=== PATIENT | male | born 1960 | race Hispanic/Latino ===

== ENCOUNTER 2019-06-14 10:36 | Inpatient (IN) | payer OTHER ==
[~2019-06-14] VITALS: Ht 188 cm; Wt 84.9 kg
[2019-06-14] MEDS ORDERED: KETOROLAC TROMETHAMINE 30 MG/ML VIAL IV STA (10:52)
[2019-06-14] MEDS ORDERED: ENALAPRILAT IV INJ 1.25 MG/ML VIAL IV STA (10:55)
[2019-06-14] MEDS ORDERED: ONDANSETRON HCL INJ 2MG/ML 2ML 2 MG/ML VIAL IV PRN (11:00)
[2019-06-14] MEDS ORDERED: SODIUM CHLORIDE FLUSH 10 ML SYR INJ PRN (11:00)
[2019-06-14] MEDS ORDERED: SODIUM CHLORIDE 0.9% 1000ML 1,000 ML IV SCH (11:00)
[2019-06-14 11:30] LABS: BASOPHILS # (AUTO) 0.1 (0.0-0.1); BASOPHILS % 0.5 % (0.0-1.0); EOSINOPHILS # (AUTO) 0.1 (0.0-0.4); EOSINOPHILS % 0.6 % (0.0-6.0); HEMATOCRIT 45.3 % (38.2-49.6); HEMOGLOBIN 15.6 g/dL (14.0-18.0); LYMPHOCYTES # (AUTO) 1.5 (1.0-3.2); LYMPHOCYTES % 10.1 % (18.0-39.1); MEAN CORPUSCULAR HEMOGLOBIN 34.2 pg (28-32); MEAN CORPUSCULAR HGB CONC 34.4 g/dL (31-35); MEAN CORPUSCULAR VOLUME 99.3 fL (81-99); MONOCYTES # (AUTO) 1.1 (0.2-0.8); MONOCYTES % 7.3 % (4.4-11.3); NEUTROPHILS # (AUTO) 12.1 (2.1-6.9); NEUTROPHILS % 81.1 % (38.7-80.0); PLATELET COUNT 233 x10e3/uL (140-360); RED BLOOD COUNT 4.56 x10e6/uL (4.3-5.7); RED CELL DISTRIBUTION WIDTH 13.2 % (11.7-14.4)
[2019-06-14 11:51] LABS: ALANINE AMINOTRANSFERASE 21 IU/L (0-55); ALBUMIN 3.4 g/dL (3.5-5.0); ALBUMIN/GLOBULIN RATIO 0.8 (0.8-2.0); ALKALINE PHOSPHATASE 104 IU/L (40-150); ANION GAP 12.6 mmol/L (8-16); BLOOD UREA NITROGEN 15 mg/dL (7-26); BUN/CREATININE RATIO 13 (6-25); CALCIUM 9.7 mg/dL (8.4-10.2); CARBON DIOXIDE 24 mmol/L (22-29); CHLORIDE 103 mmol/L (98-107); CREATININE, SERUM 1.13 mg/dL (0.72-1.25); EST GLOMERULAR FILTRATION RATE > 60 ML/MIN (60-); GLUCOSE 118 mg/dL (74-118); POTASSIUM 3.6 mmol/L (3.5-5.1); SODIUM 136 mmol/L (136-145)
[2019-06-14] MEDS: PIPER-TAZ 3.375 GM 50 ML IV SCH ×2 (13:08→22:00)
[2019-06-14] MEDS: VANCOMYCIN 1GM/NS 250 ML 250 ML IV SCH ×2 (13:08→22:00)
[2019-06-14] MEDS ORDERED: FAMOTIDINE 20 MG/2 ML VIAL IV SCH (17:00)
[2019-06-14] MEDS: FAMOTIDINE 20 MG TAB PO SCH (18:33)
[2019-06-14] MEDS: TRAMADOL HCL 50 MG TAB PO PRN (22:22)
--- NOTE | 2019-06-14 23:41 | NUR ---
Received patient from ER via stretcher. Patient awake and resting in bed, no s/s of distress or c/o pain at this time. All safety measures in place. Will continue to monitor.
[2019-06-15] VITALS (11 sets, daily range): BP systolic 143–175; BP diastolic 78–97
--- NOTE | 2019-06-15 00:01 | NUR ---
Wound culture of left lower extremity sent to lab.
[2019-06-15] MEDS: ACETAMINOPHEN 325 MG TAB PO PRN (00:08)
--- NOTE | 2019-06-15 02:52 | NUR ---
Moderate serous drainage to left lower extremity noted. Applied gauze and Kerlix.
--- NOTE | 2019-06-15 02:59 | NUR ---
Labs drawn as ordered and sent to lab.
[2019-06-15 03:27] LABS: BASOPHILS % 0.3 % (0.0-1.0); EOSINOPHILS # (AUTO) 0.2 (0.0-0.4); EOSINOPHILS % 1.3 % (0.0-6.0); HEMOGLOBIN 12.6 g/dL (14.0-18.0); LYMPHOCYTES # (AUTO) 1.8 (1.0-3.2); LYMPHOCYTES % 13.3 % (18.0-39.1); MEAN CORPUSCULAR HEMOGLOBIN 33.6 pg (28-32); MEAN CORPUSCULAR HGB CONC 33.2 g/dL (31-35); MEAN CORPUSCULAR VOLUME 101.3 fL (81-99); MONOCYTES # (AUTO) 1.1 (0.2-0.8); MONOCYTES % 8.4 % (4.4-11.3); NEUTROPHILS # (AUTO) 10.3 (2.1-6.9); NEUTROPHILS % 76.3 % (38.7-80.0); PLATELET COUNT 200 x10e3/uL (140-360); RED BLOOD COUNT 3.75 x10e6/uL (4.3-5.7); RED CELL DISTRIBUTION WIDTH 13.3 % (11.7-14.4)
[2019-06-15 03:51] LABS: ALANINE AMINOTRANSFERASE 35 IU/L (0-55); ALBUMIN 2.6 g/dL (3.5-5.0); ALBUMIN/GLOBULIN RATIO 0.8 (0.8-2.0); ALKALINE PHOSPHATASE 136 IU/L (40-150); ANION GAP 13.5 mmol/L (8-16); BLOOD UREA NITROGEN 14 mg/dL (7-26); BUN/CREATININE RATIO 14 (6-25); CALCIUM 8.6 mg/dL (8.4-10.2); CARBON DIOXIDE 21 mmol/L (22-29); CHLORIDE 109 mmol/L (98-107); CREATININE, SERUM 1.03 mg/dL (0.72-1.25); EST GLOMERULAR FILTRATION RATE > 60 ML/MIN (60-); GLUCOSE 103 mg/dL (74-118); POTASSIUM 3.5 mmol/L (3.5-5.1); SODIUM 140 mmol/L (136-145)
[2019-06-15] MEDS ORDERED: SODIUM CHLORIDE 0.9% 250ML 250 ML ONE (04:52)
[2019-06-15] MEDS: TRAMADOL HCL 50 MG TAB PO PRN ×4 (05:09→23:15)
[2019-06-15] MEDS: PIPER-TAZ 3.375 GM 50 ML IV SCH ×3 (05:12→22:15)
--- NOTE | 2019-06-15 05:35 | NUR ---
Daughter at bedside reporting that patient does not take any medications at home.
--- NOTE | 2019-06-15 06:53 | NUR ---
Report given to oncoming nurse. Patient resting in bed, no s/s of distress or c/o pain at this time. All safety measures in place. Family at bedside.
[2019-06-15] MEDS: VANCOMYCIN 1GM/NS 250 ML 250 ML IV SCH ×2 (08:32→20:42)
[2019-06-15] MEDS: HYDRALAZINE HCL 20 MG/ML VIAL IV PRN (08:32)
[2019-06-15] MEDS: FAMOTIDINE 20 MG TAB PO SCH ×2 (08:32→17:00)
--- NOTE | 2019-06-15 10:40 | NUR ---
Dressing change performed at this time, yellow drainage observed. Open skin in 3 sites, skin wrinkling around open areas. Redness, swelling, and tightness observed to lower ext. C/o pain 6/10. 4x4 sterile gauze and kerlix dressing.
[2019-06-15] MEDS ORDERED: FUROSEMIDE INJ 10 MG/ML 4 ML VIAL IV ONE (11:00)
[2019-06-15] MEDS ORDERED: POTASSIUM CHLORIDE 20 MEQ TAB CR PO ONE (11:00)
[2019-06-15] MEDS: AMLODIPINE BESYLATE 5 MG TAB PO SCH (11:30)
--- NOTE | 2019-06-15 12:31 | Diagnostic Imaging Report ---
Exam: Limited ultrasound left lower extremity. Clinical History: Left lower extremity cellulitis, query abscess. Technique: Limited sonographic evaluation of the left lower extremity soft tissues to evaluate for abscess was performed. Findings/Impression: There is diffuse subcutaneous edema. There is an ill-defined isoechoic to hypoechoic subcutaneous fluid collection in the left lower leg with surrounding hyperemia, suggestive of phlegmon/developing abscess. Signed by: Dr. Brittnee Maya MD on 06/15/2019 12:27 PM
--- NOTE | 2019-06-15 12:47 | NUR ---
GAVE PACKET OF INFORMATION WITH COMMUNITY [employer]OURCES FOR ASSISTANCE WITH LOW TO NO INCOME TO PATIENT. RESOURCES THAT PATIENT MAY BE ABLE TO FOLLOW UP UPON DISCHARGE. PT EDUCATED ON EACH RESOURCE AND UNDERSTANDING HOW TO FOLLOW UP TO SEE IF QUALIFIED FOR EACH RESOURCE.
--- NOTE | 2019-06-15 13:15 | NUR ---
Consults called at this time for Dr. Walters and Dr. White per order
--- NOTE | 2019-06-15 13:17 | NUR ---
Received call back from Dr. Broderick regarding consult. Will be in to see pt tomorrow
[2019-06-15] MEDS ORDERED: SODIUM CHLORIDE 0.9% 50ML 50 ML ONE ×2 (18:16)
[2019-06-15] MEDS ORDERED: IOPAMIDOL 370 MG/ML 200 ML INFUS..BTL INJ ONE (18:17)
--- NOTE | 2019-06-15 19:04 | NUR ---
Received report from day nurse. Patient currently off unit for CT. Will continue to monitor upon return.
--- NOTE | 2019-06-15 19:50 | Diagnostic Imaging Report ---
EXAM: CT left lower extremity WITH contrast INDICATION: ^Abscess ^[id number] ^190 COMPARISON: Same day ultrasound. TECHNIQUE: Left lower extremity was scanned utilizing a multidetector helical scanner following administration of IV contrast (100 Isovue-370). Coronal and sagittal reformations were obtained. Routine protocol was performed. COMPLICATIONS: None RADIATION DOSE: Total DLP: 263.21 mGy*cm Estimated effective dose: (DLP x 0.015 x size factor) mSv CTDIvol has been reviewed. It is below the limits set by the Radiation Protocol Committee (RPC). FINDINGS: No acute osseous fracture or dislocation. Incidentally seen os trigonum and tiny calcaneal enthesophytes. No suprapatellar joint effusion. Subcutaneous edema of the visualized left lower extremity, mostly on the lateral side. Approximately 3.7 x 2 cm collection (series 600, image 57), seen posterior and inseparable from ankle joint. And less likely to represent abscess. No surrounding inflammation. There is also lateral left leg skin thickening. Vessels are patent. IMPRESSION: 1. Subcutaneous edema and skin thickening of the lateral left leg, could represent cellulitis. 2. Approximately 3.7 cm posterolateral collection, inseparable from ankle joint, likely joint effusion and less likely to represent an abscess without surrounding inflammation. Signed by: Dr. Joe Kirby MD on 06/15/2019 7:47 PM
--- NOTE | 2019-06-15 21:52 | Consultation ---
DATE OF CONSULTATION: 06/15/2019 This is patient of Dr. Calhoun. REASON FOR CONSULTATION: Infectious Disease consulted for cellulitis of the left lower extremity. HISTORY OF PRESENT ILLNESS: I would like to thank you for this kind consult. This is a 58-year-old Latin-Polish gentleman, who is presented today at [facility] in [place] accompanied with his complaining of left lower extremity cellulitis, erythema, redness that has started about a week ago when he started trying to pop a pimple on the lateral side of his left leg and almost mid tibial area on the lateral side, apparently progressive and started getting worse, started having chills and shakes and severe swelling and edema and worsening of the pain. The patient came to the hospital seeking medical attention. PAST MEDICAL HISTORY: Including hypertension. SOCIAL HISTORY: Lives with the family. He smokes about 6 cigarettes a day and drinks a 6 pack of beer and denied any illicit drugs. ALLERGIES: NO KNOWN ALLERGIES. MEDICATIONS: Medication list reviewed. As far as Infectious Disease point of view, the patient is on vancomycin IV and Zosyn. LABORATORY DATA: White blood cells of 13.5, platelet 200, hemoglobin 12.6. Sodium 140, potassium 3.5, creatinine 1.03. Microbiology, blood cultures negative 24 hours. Wound cultures pending. RADIOLOGY STUDIES: Ultrasound of the left lower extremity showed diffuse subcutaneous edema. There is an ill-defined isoechoic to hypoechoic subcutaneous fluid collection in the left lower leg with surrounding hyperemia suggestive of phlegmon and developing abscess. REVIEW OF SYSTEMS: Complained of a pain on the left flank and fever and chills on admission. No nausea or vomiting. PHYSICAL EXAMINATION: GENERAL: Alert and oriented, responds appropriately. VITAL SIGNS: Blood pressure 143/78, temperature 97.2, pulse 88, respiration 18. CV: S1 and S2. CHEST: Equal expansion. Clear to auscultation. No acute distress. ABDOMEN: Soft and nontender. No distention. HEENT: Moist, no pallor. No JVD. EXTREMITIES: Left lower extremity erythema with the wounds that seem to have drained some in the past with scabbed over with some skin elevation and discoloration on the lateral side of the left leg. The leg is swollen with redness from mid metatarsal area to half the thigh. ASSESSMENT AND PLAN: 1. Severe cellulitis of the left lower extremities. 2. Wounds on left lower extremities. 3. Pain. 4. Hypertension. 5. Concerned abscess. 6. Tobacco and alcohol abuse. Currently on vancomycin IV and Zosyn, I agreed with antibiotics. General Surgery is consulted. We will follow up with the cultures. Further management of this patient is based on daily finding on laboratory and physical examination. We will order an MRI of the left lower extremity. This case was discussed with Dr. White in details. I want to thank you for this kind consult. Dictated by Demetri Lepe PA-C (Al) Anand White MD /MODL /[id number]
[2019-06-16] VITALS (8 sets, daily range): BP systolic 134–168; BP diastolic 84–100
--- NOTE | 2019-06-16 03:20 | NUR ---
0300 labs drawn and sent to lab as ordered.
[2019-06-16 03:41] LABS: BASOPHILS # (AUTO) 0.1 (0.0-0.1); BASOPHILS % 0.4 % (0.0-1.0); EOSINOPHILS # (AUTO) 0.2 (0.0-0.4); EOSINOPHILS % 1.9 % (0.0-6.0); HEMATOCRIT 38.6 % (38.2-49.6); LYMPHOCYTES # (AUTO) 1.6 (1.0-3.2); LYMPHOCYTES % 12.9 % (18.0-39.1); MEAN CORPUSCULAR HEMOGLOBIN 33.7 pg (28-32); MEAN CORPUSCULAR HGB CONC 33.7 g/dL (31-35); MONOCYTES # (AUTO) 0.9 (0.2-0.8); MONOCYTES % 7.5 % (4.4-11.3); NEUTROPHILS # (AUTO) 9.5 (2.1-6.9); NEUTROPHILS % 76.9 % (38.7-80.0); PLATELET COUNT 225 x10e3/uL (140-360); RED BLOOD COUNT 3.86 x10e6/uL (4.3-5.7); RED CELL DISTRIBUTION WIDTH 13.2 % (11.7-14.4)
[2019-06-16 03:54] LABS: ALANINE AMINOTRANSFERASE 53 IU/L (0-55); ALBUMIN 2.6 g/dL (3.5-5.0); ALKALINE PHOSPHATASE 254 IU/L (40-150); ANION GAP 13.3 mmol/L (8-16); BILIRUBIN,DIRECT 0.9 mg/dL (0.0-0.5); BLOOD UREA NITROGEN 13 mg/dL (7-26); BUN/CREATININE RATIO 12 (6-25); CARBON DIOXIDE 25 mmol/L (22-29); CHLORIDE 103 mmol/L (98-107); EST GLOMERULAR FILTRATION RATE > 60 ML/MIN (60-); GLUCOSE 105 mg/dL (74-118); POTASSIUM 3.3 mmol/L (3.5-5.1); SODIUM 138 mmol/L (136-145)
[2019-06-16] MEDS: TRAMADOL HCL 50 MG TAB PO PRN ×3 (05:11→18:29)
[2019-06-16] MEDS: PIPER-TAZ 3.375 GM 50 ML IV SCH ×3 (05:11→22:33)
--- NOTE | 2019-06-16 05:11 | NUR ---
Administered pain medication and changed left lower extremity dressing. Applied sterile 4x4 gauze and Kerlix. Patient running 93% on room air and 96% on 2L O2 NC. Respirations even and unlabored, vital signs stable, no s/s of distress noted. Patient prefers to lie flat in bed with feet elevated. All safety measures in place. Family at bedside. Will continue to monitor.
--- NOTE | 2019-06-16 06:44 | NUR ---
Dr. Broderick rounded on patient and informed family that no surgery is needed at this time.
--- NOTE | 2019-06-16 07:00 | NUR ---
BEDSIDE SHIFT REPORT RECEIVED FROM THE TELEPHONE SALES REPRESENTATIVE RN. EDUCATED PT ABOUT FALL PRECAUTIONS. CALL LIGHT WITH IN EASY REACH. INSTRUCTED PT TO USE CALL LIGHT FOR ALL THE NEEDS. PT VERBALIZED UNDERSTANDING. BED IS LOW AND LOCKED. SIDE RAILS X2. BED ALARM IS ON. AT BEDSIDE. PT DENIES NEEDS AT THIS TIME.
--- NOTE | 2019-06-16 07:15 | NUR ---
Bedside report given to oncoming nurse. Patient resting in bed, no s/s of distress at this time. All safety measures in place. Family at bedside.
[2019-06-16] MEDS: FAMOTIDINE 20 MG TAB PO SCH ×2 (08:30→16:23)
[2019-06-16] MEDS: VANCOMYCIN 1GM/NS 250 ML 250 ML IV SCH ×2 (09:11→21:15)
[2019-06-16] MEDS: AMLODIPINE BESYLATE 5 MG TAB PO SCH (09:11)
[2019-06-16] MEDS ORDERED: POTASSIUM CHLORIDE 20 MEQ TAB CR PO ONE (10:00)
--- NOTE | 2019-06-16 11:15 | Consultation ---
DATE OF CONSULTATION: 06/16/2019 HISTORY OF PRESENT ILLNESS: The patient is a 58-year-old male who presents with complaints of pain and swelling in his left leg. He says it started as a small pimple about a little more than a week ago, but worsened. He has had noted some small amount of drainage from the area. He was sent to the emergency room where he was admitted to the hospital. A CT of the leg was done, which revealed some thickening and edema, but no definite abscess. The patient says since he has been in the hospital, his leg is improved, the redness is less, his pain is less. PAST MEDICAL HISTORY: Significant for hypertension. ALLERGIES: HE HAS NO KNOWN ALLERGIES. MEDICATIONS: Listed in the chart. PAST SURGICAL HISTORY: No previous surgeries. FAMILY HISTORY: Noncontributory. SOCIAL HISTORY: The patient smokes about a third of pack cigarettes per day. Drinks 1-2 drinks per day. REVIEW OF SYSTEMS: Essentially negative. He has not had any fever. PHYSICAL EXAMINATION: GENERAL: The patient is awake and alert, in no distress. VITAL SIGNS: Normal. HEENT: Unremarkable. Sclerae are nonicteric. NECK: No masses. LUNGS: Equal breath sounds are clear bilaterally. CARDIAC: Regular rate and rhythm with no murmur. ABDOMEN: Soft. There is no tenderness. No mass. No organomegaly. EXTREMITIES: In the left leg, there is erythema in the anterolateral aspect of the left leg below the knee; and laterally, there is some discoloration of the skin. There was no fluctuance. There was no drainage noted. There is no crepitus. There is erythema of the surrounding area. Peripheral pulses are palpable. NEUROLOGIC: Grossly intact. ASSESSMENT: A 58-year-old male with primarily cellulitis of the left leg. No definite abscess at this time. At this point, recommend continue the patient on IV antibiotics with leg elevation. Hope this likely will resolve without requiring surgical intervention, but is possible could develop into an abscess. Thank you for asking me to see Mr. Alejandra. MD EVELIA Lao/ELIZABETH /[id number]
[2019-06-16] MEDS: HYDRALAZINE HCL 20 MG/ML VIAL IV PRN ×2 (12:20→21:15)
--- NOTE | 2019-06-16 14:10 | NUR ---
Visit made by the Spiritual Care Department Pastoral Visitor, Mounika Perez. PV provided pastoral presence, hospitality, prayer, and supportive listening. Pastoral Visitor informed pt/family of the scope of Activities Volunteer Services and availability. JAMESON FIGUEROA Trench Trimmer [employer] Spiritual Care Department O: [phone] Pager: [phone] ([phone] number calling from)
--- NOTE | 2019-06-16 19:00 | NUR ---
BEDSIDE SHIFT REPORT GIVEN TO THE INSULATION FOREMAN RN. PT DENIED FURTHER NEEDS
--- NOTE | 2019-06-16 19:26 | NUR ---
Received bedside report from day nurse. Patient resting in bed, no s/s of distress at this time. All safety measures in place. Family at bedside. Will continue to monitor.
[2019-06-17] VITALS (8 sets, daily range): BP systolic 149–183; BP diastolic 81–93
[2019-06-17] MEDS: TRAMADOL HCL 50 MG TAB PO PRN ×3 (03:15→16:17)
--- NOTE | 2019-06-17 03:26 | NUR ---
Labs drawn as ordered and sent to lab.
[2019-06-17 03:38] LABS: BASOPHILS # (AUTO) 0.1 (0.0-0.1); BASOPHILS % 0.5 % (0.0-1.0); EOSINOPHILS # (AUTO) 0.3 (0.0-0.4); EOSINOPHILS % 2.3 % (0.0-6.0); HEMATOCRIT 39.1 % (38.2-49.6); HEMOGLOBIN 13.2 g/dL (14.0-18.0); LYMPHOCYTES # (AUTO) 1.3 (1.0-3.2); LYMPHOCYTES % 11.6 % (18.0-39.1); MEAN CORPUSCULAR HGB CONC 33.8 g/dL (31-35); MEAN CORPUSCULAR VOLUME 97.8 fL (81-99); NEUTROPHILS # (AUTO) 8.3 (2.1-6.9); NEUTROPHILS % 76.2 % (38.7-80.0); PLATELET COUNT 252 x10e3/uL (140-360)
[2019-06-17 03:59] LABS: ALANINE AMINOTRANSFERASE 61 IU/L (0-55); ALBUMIN 2.6 g/dL (3.5-5.0); ALKALINE PHOSPHATASE 293 IU/L (40-150); ANION GAP 15.4 mmol/L (8-16); BILIRUBIN,DIRECT 0.7 mg/dL (0.0-0.5); BLOOD UREA NITROGEN 11 mg/dL (7-26); BUN/CREATININE RATIO 11 (6-25); CALCIUM 9.2 mg/dL (8.4-10.2); CARBON DIOXIDE 21 mmol/L (22-29); CHLORIDE 101 mmol/L (98-107); CREATININE, SERUM 0.99 mg/dL (0.72-1.25); EST GLOMERULAR FILTRATION RATE > 60 ML/MIN (60-); GLUCOSE 108 mg/dL (74-118); POTASSIUM 3.4 mmol/L (3.5-5.1); SODIUM 134 mmol/L (136-145)
[2019-06-17] MEDS: PIPER-TAZ 3.375 GM 50 ML IV SCH ×3 (05:15→22:13)
--- NOTE | 2019-06-17 07:00 | NUR ---
BEDSIDE SHIFT REPORT RECEIVED FROM THE LEAD PORTFOLIO MANAGER RN. EDUCATED PT ABOUT FALL PRECAUTIONS. CALL LIGHT WITH IN EASY REACH. INSTRUCTED PT TO USE CALL LIGHT FOR ALL THE NEEDS. PT VERBALIZED UNDERSTANDING. BED IS LOW AND LOCKED. SIDE RAILS X2. AT BEDSIDE. PT DENIES NEEDS AT THIS TIME.
--- NOTE | 2019-06-17 07:10 | NUR ---
Bedside report given to oncoming nurse. Patient resting in bed, no s/s of distress or c/o pain at this time. All safety measures in place. Family at bedside.
[2019-06-17] MEDS ORDERED: GADOBENATE DIMEGLUMINE 1 ML IV ONE (07:50)
[2019-06-17] MEDS: FAMOTIDINE 20 MG TAB PO SCH ×2 (08:30→16:05)
[2019-06-17] MEDS: VANCOMYCIN 1GM/NS 250 ML 250 ML IV SCH (08:40)
[2019-06-17] MEDS ORDERED: AMLODIPINE BESYLATE 10 MG TAB PO SCH (09:00)
[2019-06-17] MEDS ORDERED: POTASSIUM CHLORIDE 20 MEQ TAB CR PO ONE (09:00)
[2019-06-17] MEDS: MORPHINE SULFATE 2 MG/ML SYR 1ML IV PRN (12:49)
--- NOTE | 2019-06-17 14:13 | NUR ---
58 YO MALE HX OF CELLULITIS LLE PATIENT REPORT PRESENCE OF ONE ONE SMALL PUSS FILLED BUMP THAT HE SQUEEZED AND THEN X 2 DAYS LEG BECAME INFLAMED AND SMALL DARK AREA WHERE BUMP ONCE WAS ZAK 17 ON CONSERVATIVE PUP AND ALTERNATING PRESSURE SURFACE CULTURE PENDING FOR LLE WOUND PLAN FOR MRI CT AND ULTRASOUND LLE COMPLETE SKIN ASSESSMENT COMPLETE PATIENT PRESENTS WITH LLE SWOLLEN AND OPENED BLISTERED AREA MEASURING 11CM X 3CM X.1CM WITH A DARK SCABBED CIRCULAR AREA MEASURING 1CM X1CM RECOMMENDATIONS: NURSING TO CLEAN LEFT LOWER LEG WOUND DAILY WITH NS APPLY BACITRACIN OINTMENT TO WOUND AND COVER WITH ALLEVYN FOAM DRESSING Addendum: 06/17/19 at 1423 by Kirt Garcia RN Amended: Links added.
--- NOTE | 2019-06-17 14:15 | NUR ---
PT OFF UNIT FOR MRI.
--- NOTE | 2019-06-17 15:05 | NUR ---
PT BACK TO UNIT AFTER PROCEDURE. DENIES NEEDS AT THIS TIME.
[2019-06-17] MEDS: BACITRACIN ZINC 15 GM OINT TOP SCH (16:00)
[2019-06-17] MEDS: HYDRALAZINE HCL 20 MG/ML VIAL IV PRN (16:59)
--- NOTE | 2019-06-17 19:00 | NUR ---
BEDSIDE SHIFT REPORT GIVEN TO THE DIVISION CONTROLLER RN. PT DENIED FURTHER NEEDS. FAMILY AT BEDSIDE.
[2019-06-17] MEDS: VANCOMYCIN HCL 1.25 GM in SODIUM CHLORIDE 0.9% 250ML 250 ML IV SCH (20:38)
[2019-06-17] MEDS ORDERED: VANCOMYCIN 1GM/NS 250 ML 250 ML IV SCH (21:00)
[2019-06-17] MEDS ORDERED: ONDANSETRON HCL 4 MG ORAL DISINTEGRATING TAB PO PRN (21:45)
[2019-06-18] VITALS (7 sets, daily range): BP systolic 138–167; BP diastolic 72–86
[2019-06-18] MEDS: TRAMADOL HCL 50 MG TAB PO PRN (02:57)
[2019-06-18 03:08] LABS: BASOPHILS # (AUTO) 0.1 (0.0-0.1); BASOPHILS % 0.5 % (0.0-1.0); EOSINOPHILS # (AUTO) 0.2 (0.0-0.4); EOSINOPHILS % 1.9 % (0.0-6.0); HEMATOCRIT 38.2 % (38.2-49.6); HEMOGLOBIN 12.9 g/dL (14.0-18.0); LYMPHOCYTES # (AUTO) 1.4 (1.0-3.2); LYMPHOCYTES % 13.8 % (18.0-39.1); MEAN CORPUSCULAR HEMOGLOBIN 33.2 pg (28-32); MEAN CORPUSCULAR HGB CONC 33.8 g/dL (31-35); MEAN CORPUSCULAR VOLUME 98.2 fL (81-99); MONOCYTES # (AUTO) 1.1 (0.2-0.8); MONOCYTES % 10.4 % (4.4-11.3); NEUTROPHILS # (AUTO) 7.4 (2.1-6.9); NEUTROPHILS % 73.1 % (38.7-80.0); PLATELET COUNT 261 x10e3/uL (140-360); RED BLOOD COUNT 3.89 x10e6/uL (4.3-5.7); RED CELL DISTRIBUTION WIDTH 13.1 % (11.7-14.4)
[2019-06-18 03:23] LABS: ANION GAP 15.6 mmol/L (8-16); BLOOD UREA NITROGEN 10 mg/dL (7-26); BUN/CREATININE RATIO 10 (6-25); CALCIUM 9.1 mg/dL (8.4-10.2); CARBON DIOXIDE 21 mmol/L (22-29); CHLORIDE 102 mmol/L (98-107); CREATININE, SERUM 0.99 mg/dL (0.72-1.25); EST GLOMERULAR FILTRATION RATE > 60 ML/MIN (60-); GLUCOSE 90 mg/dL (74-118); MAGNESIUM 2.2 MG/DL (1.3-2.1); POTASSIUM 3.6 mmol/L (3.5-5.1); SODIUM 135 mmol/L (136-145)
[2019-06-18] MEDS ORDERED: BACITRACIN15 GM TOP (05:31)
[2019-06-18] MEDS ORDERED: NIFEDIPINE ER30 M1 PO (05:31)
[2019-06-18] MEDS ORDERED: TYLENOL WITH C1 EACH PO (05:31)
[2019-06-18] MEDS: PIPER-TAZ 3.375 GM 50 ML IV SCH ×3 (05:37→22:38)
--- NOTE | 2019-06-18 07:00 | NUR ---
received am report and rounds done. pt is alert resting in bed, no s/s of distress. call light within reach and instructed pt to call RN for help. family at the bedside
[2019-06-18] MEDS: FAMOTIDINE 20 MG TAB PO SCH ×2 (07:30→16:29)
--- NOTE | 2019-06-18 08:44 | Diagnostic Imaging Report ---
MRI of the left tibia/fibula with hand without contrast. History: Cellulitis of left leg. Possible spider bite. Leg pain Technique: Multiplanar multisequence MRI of the left tibia/fibula with and without IV contrast. 17 cc IV gadolinium contrast material was administered. Comparison: CT scan 06/15/2019 Findings: Extensive abnormal soft tissue edema and skin thickening and apparent blistering most pronounced along the anterior lateral aspect of the left tibia/fibula. This is consistent with cellulitis. There is an associated 6 x 1.5 x 5 cm peripherally enhancing fluid collection as seen on series 8 image 15 superficial to the underlying musculature within the subcutaneous fat approximately 4 mm deep to the skin surface along the anterior lateral left tibia/fibula consistent with an abscess. Minimal edema in the adjacent underlying anterior lateral musculature of the left tibia/fibula. This could be due to early myositis. No focal bone marrow edema or cortical destruction is seen to suggest osteomyelitis. Small tibiotalar joint effusion projecting posteriorly. No ligamentous or tendon tear. The visualized neurovascular bundles are intact. Impression: Findings consistent with cellulitis and abscess along the anterior lateral aspect of the left tibia/fibula. Minimal edema in the adjacent underlying anterior lateral musculature of the left tibia/fibula. This could be due to early myositis. No focal bone marrow edema or cortical destruction is seen to suggest osteomyelitis Signed by: Dr. Donnell Yoder M.D. on 06/18/2019 8:40 AM
[2019-06-18] MEDS: BACITRACIN ZINC 15 GM OINT TOP SCH (09:00)
[2019-06-18] MEDS ORDERED: BACITRACIN 50,000 UNIT VIAL IM SCH (09:00)
[2019-06-18] MEDS: VANCOMYCIN HCL 1.25 GM in SODIUM CHLORIDE 0.9% 250ML 250 ML IV SCH ×2 (09:50→21:10)
[2019-06-18] MEDS ORDERED: BACITRACIN 50,000 UNIT VIAL ONE (10:28)
[2019-06-18] MEDS ORDERED: ONDANSETRON HCL INJ 2MG/ML 2ML 2 MG/ML VIAL IV PRN (11:00)
--- NOTE | 2019-06-18 11:28 | Operative Report ---
DATE OF PROCEDURE: 06/18/2019 SURGEON: Don Broderick MD PREOPERATIVE DIAGNOSIS: Abscess, left leg. POSTOPERATIVE DIAGNOSIS: Abscess, left leg. PROCEDURE: Incision and drainage of abscess, left leg complex. BINDING FOLDER MACHINE: None. ANESTHESIA: General. INDICATIONS AND FINDINGS: The patient is a 58-year-old male, who admitted to the hospital with pain and swelling in the left leg. Initially, appeared to be just cellulitis, but then developed into an area of fluctuance. At surgery, there was an abscess in the left leg anterolaterally, containing approximately 35 mL of purulent fluid. TECHNIQUE: After adequate general anesthesia, the patient in supine position, left leg was prepped and draped in a sterile fashion with Betadine solution. A longitudinal incision was made over the area of swelling and abscess cavity was entered, about 35 mL of purulent fluid was drained, sample taken for culture and sensitivity. The abscess tracked medially and there were multiple loculations, which were broken up. There was no necrotic tissue. The abscess cavity was irrigated with saline and all fluid was drained, inspected for hemostasis, which was seen to be adequate. The cavity was then packed open with half-inch iodoform gauze and sterile dressing was applied. The patient tolerated the procedure well. Estimated blood loss was 15 mL. There were no complications. All counts were correct and the patient was taken to the recovery room in satisfactory condition. Don Broderick MD DWG/MODL /[id number]
[2019-06-18] MEDS ORDERED: SODIUM CHLORIDE 0.9% 250ML 250 ML ONE (13:04)
[2019-06-18] MEDS: NIFEDIPINE CR 30 MG TAB PO SCH (14:07)
[2019-06-18] MEDS ORDERED: DEXAMETHASONE SOD PHOS INJ 4 MG/ML VIAL ONE (14:47)
[2019-06-18] MEDS ORDERED: ONDANSETRON HCL INJ 2MG/ML 2ML 2 MG/ML VIAL ONE (14:47)
[2019-06-18] MEDS ORDERED: LIDOCAINE HCL 2% LOCAL INJ 5 ML SDV VIAL INJ ONE (14:47)
[2019-06-18] MEDS ORDERED: PROPOFOL IV EMULSION 10 MG/ML 20 ML VIAL ONE (14:47)
[2019-06-18] MEDS ORDERED: EPHEDRINE SULFATE INJ 50 MG/ML VIAL ONE (14:47)
[2019-06-18] MEDS ORDERED: SEVOFLURANE INHAL SOLN 250 ML PEN BTL ONE (14:47)
[2019-06-18] MEDS: HYDROCODONE/APAP 5MG-325MG TAB PO PRN ×2 (15:57→21:16)
--- NOTE | 2019-06-18 19:11 | NUR ---
Received bedside report from day nurse. Patient resting in bed, no s/s of distress or c/o pain at this time. All safety measures in place. Family at bedside. Will continue to monitor.
[2019-06-18] MEDS ORDERED: FENTANYL CITRATE/PF 100MCG/2 ML INJ ONE (19:24)
[2019-06-18] MEDS ORDERED: MIDAZOLAM HCL 2 MG/2 ML VIAL ONE (19:24)
--- NOTE | 2019-06-18 21:15 | NUR ---
Outer dressing of left leg changed. Packing in place. Minimal bloody drainage noted. Patient tolerated procedure.
[2019-06-18] MEDS: MORPHINE SULFATE 2 MG/ML SYR 1ML IV PRN (22:49)
[2019-06-19] VITALS (8 sets, daily range): BP systolic 109–147; BP diastolic 64–83
--- NOTE | 2019-06-19 03:36 | NUR ---
Labs drawn as ordered and sent to lab.
[2019-06-19] MEDS: HYDROCODONE/APAP 5MG-325MG TAB PO PRN ×4 (03:37→19:24)
[2019-06-19 03:46] LABS: BASOPHILS % 0.4 % (0.0-1.0); EOSINOPHILS % 0.3 % (0.0-6.0); HEMATOCRIT 37.2 % (38.2-49.6); HEMOGLOBIN 12.7 g/dL (14.0-18.0); LYMPHOCYTES # (AUTO) 0.9 (1.0-3.2); LYMPHOCYTES % 8.6 % (18.0-39.1); MEAN CORPUSCULAR HEMOGLOBIN 33.6 pg (28-32); MEAN CORPUSCULAR HGB CONC 34.1 g/dL (31-35); MEAN CORPUSCULAR VOLUME 98.4 fL (81-99); MONOCYTES # (AUTO) 0.8 (0.2-0.8); MONOCYTES % 7.4 % (4.4-11.3); NEUTROPHILS # (AUTO) 8.8 (2.1-6.9); NEUTROPHILS % 82.7 % (38.7-80.0); PLATELET COUNT 286 x10e3/uL (140-360); RED BLOOD COUNT 3.78 x10e6/uL (4.3-5.7); RED CELL DISTRIBUTION WIDTH 12.7 % (11.7-14.4)
[2019-06-19 04:00] LABS: ANION GAP 15.8 mmol/L (8-16); BUN/CREATININE RATIO 17 (6-25); CALCIUM 9.3 mg/dL (8.4-10.2); CARBON DIOXIDE 22 mmol/L (22-29); CHLORIDE 104 mmol/L (98-107); EST GLOMERULAR FILTRATION RATE > 60 ML/MIN (60-); GLUCOSE 124 mg/dL (74-118); POTASSIUM 3.8 mmol/L (3.5-5.1); SODIUM 138 mmol/L (136-145)
[2019-06-19 04:01] LABS: BLOOD UREA NITROGEN 19 mg/dL (7-26)
[2019-06-19] MEDS: PIPER-TAZ 3.375 GM 50 ML IV SCH ×3 (05:35→21:13)
[2019-06-19] MEDS: MORPHINE SULFATE 2 MG/ML SYR 1ML IV PRN (06:00)
--- NOTE | 2019-06-19 06:59 | NUR ---
Bedside report given to day nurse. Patient resting in bed, no s/s of distress or c/o pain at this time. All safety measures in place. Family at bedside.
--- NOTE | 2019-06-19 07:00 | NUR ---
RECEIVED AM REPORT AND ROUNDS DONE. PT IS ALERT RESTING IN BED, NO S/S OF DISTRESS. CALL LIGHT WITHIN REACH AND INSTRUCTED PT TO CALL RN FOR HELP. FAMILY MEMBER AT THE BEDSIDE
[2019-06-19] MEDS: BACITRACIN ZINC 15 GM OINT TOP SCH (08:25)
--- NOTE | 2019-06-19 09:27 | NUR ---
sterile dry dressing change done
[2019-06-19] MEDS: FAMOTIDINE 20 MG TAB PO SCH ×2 (09:31→16:37)
[2019-06-19] MEDS: NIFEDIPINE CR 30 MG TAB PO SCH (09:31)
--- NOTE | 2019-06-19 19:10 | NUR ---
Received the patient in report.lyeing in the bed.pain voiced 12/03.aaox4.dressing dry.bed locked and in lowest position.phone and call light within reach.instructed to call for assistance as needed.stable condition.
[2019-06-20] VITALS: BP 143/86
--- NOTE | 2019-06-20 03:17 | NUR ---
Blood drawn and sent to the lab as per order.pt tolerated well.
[2019-06-20 03:32] LABS: BASOPHILS # (AUTO) 0.1 (0.0-0.1); BASOPHILS % 0.8 % (0.0-1.0); EOSINOPHILS # (AUTO) 0.3 (0.0-0.4); EOSINOPHILS % 3.8 % (0.0-6.0); HEMATOCRIT 39.4 % (38.2-49.6); HEMOGLOBIN 13.2 g/dL (14.0-18.0); LYMPHOCYTES # (AUTO) 1.9 (1.0-3.2); LYMPHOCYTES % 24.3 % (18.0-39.1); MEAN CORPUSCULAR HEMOGLOBIN 33.6 pg (28-32); MEAN CORPUSCULAR HGB CONC 33.5 g/dL (31-35); MEAN CORPUSCULAR VOLUME 100.3 fL (81-99); MONOCYTES # (AUTO) 0.7 (0.2-0.8); MONOCYTES % 8.8 % (4.4-11.3); NEUTROPHILS # (AUTO) 4.7 (2.1-6.9); NEUTROPHILS % 61.1 % (38.7-80.0); PLATELET COUNT 349 x10e3/uL (140-360); RED BLOOD COUNT 3.93 x10e6/uL (4.3-5.7); RED CELL DISTRIBUTION WIDTH 12.8 % (11.7-14.4)
[2019-06-20 03:51] LABS: ANION GAP 15.8 mmol/L (8-16); BLOOD UREA NITROGEN 18 mg/dL (7-26); BUN/CREATININE RATIO 16 (6-25); CALCIUM 9.2 mg/dL (8.4-10.2); CARBON DIOXIDE 24 mmol/L (22-29); CHLORIDE 107 mmol/L (98-107); CREATININE, SERUM 1.11 mg/dL (0.72-1.25); EST GLOMERULAR FILTRATION RATE > 60 ML/MIN (60-); GLUCOSE 97 mg/dL (74-118); MAGNESIUM 2.3 MG/DL (1.3-2.1); POTASSIUM 3.8 mmol/L (3.5-5.1); SODIUM 143 mmol/L (136-145)
[2019-06-20 04:00] VITALS: BP 154/88
[2019-06-20] MEDS: HYDROCODONE/APAP 5MG-325MG TAB PO PRN ×2 (05:13→09:04)
[2019-06-20] MEDS: PIPER-TAZ 3.375 GM 50 ML IV SCH (05:13)
--- NOTE | 2019-06-20 07:00 | NUR ---
Bed side shift report given to oncoming RN.stable condition.
[2019-06-20 08:00] VITALS: BP 158/96
[2019-06-20] MEDS: FAMOTIDINE 20 MG TAB PO SCH (08:20)
[2019-06-20] MEDS: NIFEDIPINE CR 30 MG TAB PO SCH (08:21)
[2019-06-20 08:46] VITALS: BP 158/96
[2019-06-20] MEDS: BACITRACIN ZINC 15 GM OINT TOP SCH ×2 (09:03→09:04)
[2019-06-20] MEDS ORDERED: KEFLEX500 MG PO (09:12)
[2019-06-20 11:44] VITALS: BP 158/92
[2019-06-20] MEDS: TRAMADOL HCL 50 MG TAB PO PRN (11:46)
--- NOTE | 2019-06-20 12:06 | NUR ---
Left hand IV discontinued. No signs of infiltration noted. 2x2 gauze and tape placed. Taken via wheelchair to personal car. Accompanied by daughters and . AAOX4 to time, person, place, situation. Respirations even and unlabored. Dressing to LLE clean, dry, and intact. Discharge instructions, rx, and all personal belongings taken with patient.
[2019-06-20] MEDS ORDERED: ONDANSETRON HCL 4 MG ORAL DISINTEGRATING TAB PO PRN (12:15)
--- NOTE | 2019-06-20 16:34 | Consultation ---
DATE OF CONSULTATION: 06/17/2019 CHIEF COMPLAINT: Left leg cellulitis. HISTORY OF PRESENT ILLNESS: The patient is a 58-year-old gentleman, who was admitted a few days ago with cellulitic changes in his left lower extremity. He recently had a CT scan which showed an effusion around his left ankle. Orthopedic consultation was requested. The patient is already being followed by General Surgery. PAST MEDICAL HISTORY: Please see admission H and P. PHYSICAL EXAMINATION: GENERAL: The patient is awake and alert, and oriented and in no acute distress. EXTREMITIES: He has an area of cellulitis on the upper mid aspect of his left calf. There is some developing fluctuance. There is tenderness to palpation. There is an outline of previous cellulitic changes that extend down to the ankle. This is far beyond the border of erythema at this time. He has well preserved range of motion in his ankle. The ankle was minimally swollen. LABORATORY STUDIES: CT scan shows an effusion in the left ankle. IMPRESSION: Left ankle effusion. I see no evidence that this remote joint is connected to the cellulitic changes in his upper lateral calf. He has well preserved range of motion. There is minimal discomfort with passive range of motion of his ankle. These findings are highly inconsistent with any type of septic ankle joint. It appears that the cellulitic changes are progressing to an abscess. The patient states that his general surgeon has indicated that he will likely debride the abscess at the bedside. No further orthopedic intervention is anticipated. I have discussed the case with both Dr. Calhoun and have notified his PA. Thank you for the consultation. Don Barber MD DR/ELIZABETH /[id number]
--- NOTE | 2019-06-21 22:48 | Discharge Summary ---
ADMISSION DIAGNOSES: Left lower extremity wound with cellulitis and sepsis, hypertension, transaminitis. DISCHARGE DIAGNOSES: Left lower extremity wound with cellulitis and sepsis, hypertension, transaminitis, Staph of the wound with abscess, present on admission. HISTORY: Hypertension. SURGICAL HISTORY: None. FAMILY HISTORY: Unknown as the patient is adopted. SOCIAL HISTORY: The patient drinks 1 to 2, 40-ounce beers a day. He also smokes about 6 cigarettes a day. HOSPITAL COURSE: A 58-year-old male admits with complaints of left lower extremity pain, swelling, and draining. The left lower extremity wound started as a pimple about 1 week ago and it continued to worsen. Two days ago, he squeezed it and got pus out. Yesterday, it started draining a thin yellow liquid and he went to a clinic, but they told him to come to the ER. On admission, the patient was started on vancomycin and Zosyn. Venous Doppler was negative for DVT. Ultrasound of the extremity showed diffuse subcutaneous edema, ill-defined fluid collection. CT of the extremity showed subcutaneous edema and thickening of the lateral left leg, approximately 3.7 cm posterolateral collection, inseparable from the ankle joint, likely joint effusion and less likely to represent an abscess without surrounding inflammation. Blood cultures were negative. Initial wound culture was negative. Hep panel was negative. The transaminitis was probably due to the patient's alcohol use. Cessation was advised. Ortho was consulted due to the CT findings, who cleared the patient. The patient then had an MRI of the left lower extremity that showed findings consistent with cellulitis and abscess along the anterolateral aspect of the left tibia/fibula. Surgery was consulted, who did an I and D with packing. Two days later, the patient was discharged. He will go home with Keflex x14 days per Infectious Disease recommendation. He was given wound care supplies and instructions on how to change the dressing. The patient and family understand discharge instructions and agreed to plan. Vital signs stable, the patient afebrile. Dictated by Tamie Gamino NP MD DALI Gar/MODL /[id number]
== END 2019-06-20 12:06 | disposition home or self-care (01) | DRG 854 ==
LOC: ER 10:36 → ERHOLD 11:00 → MED/SURG2 23:36
PROVIDERS: ADMIT Internal Medicine; ATTEND Internal Medicine
PROC: 0J9R0ZZ Drainage of Left Foot Subcutaneous Tissue and Fascia, Open Approach (ICD-10-PCS; principal; 2019-06-18 10:34)
DX: A41.9 Sepsis, unspecified organism (principal); L03.116 Cellulitis of left lower limb; L02.416 Cutaneous abscess of left lower limb; B95.8 Unspecified staphylococcus as the cause of diseases classified elsewhere; I10 Essential (primary) hypertension; M25.472 Effusion, left ankle; E87.6 Hypokalemia
CPT/HCPCS: 36415; 73701; 76882; 80048; 80053; 80061; 80076; 80202; 82948; 83036; 83605; 83735; 85025; 87040; 87071; 87075; 87186; 87205; 93971; 99284; J0360; J1100; J1885; J1940; J2001; J2250; J2270; J2405; J2543; J3010; J3370; J7030; J7050; Q9967